=== PATIENT | female | born 1990 | race Caucasian/White ===

== ENCOUNTER 2017-01-18 18:14 | Emergency (ER) | payer OTHER | END 2017-01-18 18:40 | disposition home or self-care (01) | LOC: ER 18:14 | DX: S39.012A Strain of muscle, fascia and tendon of lower back, initial encounter (principal); Z90.49 Acquired absence of other specified parts of digestive tract; Z88.8 Allergy status to other drugs, medicaments and biological substances; X50.0XXA Overexertion from strenuous movement or load, initial encounter | CPT/HCPCS: 96372; J1885 ==